=== PATIENT | female | born 1975 | race Caucasian/White ===

== ENCOUNTER → 2023-08-12 13:47 | Outpatient (REF) | payer BC, SELFPAY | LOC: WDC 13:47 | PROVIDERS: ATTENDING PHYSICIAN Obstetrics & Gynecology | DX: Z12.31 Encounter for screening mammogram for malignant neoplasm of breast (principal) | CPT/HCPCS: 77063; 77067 ==

== ENCOUNTER → 2024-08-12 14:17 | Outpatient (REF) | payer BC, SELFPAY | LOC: HWRAD 14:17 | PROVIDERS: ATTENDING PHYSICIAN Obstetrics & Gynecology; FAMILY PHYSICIAN Family Medicine | DX: N92.0 Excessive and frequent menstruation with regular cycle (principal) | CPT/HCPCS: 76830; 76856 ==

== ENCOUNTER 2024-08-31 06:18 | Day surgery (SDC) | payer OTHER, SELFPAY ==
[2024-08-31 09:05] VITALS: BMI 38.3
[2024-08-31 09:06] VITALS: BP 134/93; BMI 38.3
[2024-08-31] MEDS: NORMOSOL-R/PLASMALYTE-A 1000 IV (09:11)
[2024-08-31] MEDS: NEURONTIN 100 MG PO (09:11)
[2024-08-31] MEDS: TYLENOL 1000 MG PO (09:11)
[2024-08-31 09:25] LABS: HCG, Urine Qualitative Screen Negative
--- NOTE | 2024-08-31 11:23 | W.IMMPOSTOP ---
Surgical Immed Post Op Note
-
Primary Surgeon: Leigha Juarez DO
Assisting Surgeon: none
Pre-op Diagnosis: Menorrhagia, enlarged uterus
Post-op Diagnosis: same, small endometrial polyp
Procedure Performed: Hysteroscopy D&C polypectomy
Anesthesia Type: MAC with IV sedation Dr. Orozco
Specimen / Cultures: 1. endocervical curretings; 2. endometrial curettings with polyp
Estimated Blood Loss: 5ml
Fluid deficit: 60mL NSS
Complications: none
Operative Findings: Uterus sounded to 13 cm; Endometrial polyp. Bilateral tubal ostia seen.
Counts corrects x 2.
[2024-08-31 11:30] VITALS: BP 131/77
[2024-08-31 11:45] VITALS: BP 125/82
[2024-08-31 12:00] VITALS: BP 125/82
== END 2024-08-31 12:30 | disposition home or self-care (01) ==
LOC: SDS 06:18
PROVIDERS: ATTENDING PHYSICIAN Obstetrics & Gynecology
DX: N84.0 Polyp of corpus uteri (principal); N92.0 Excessive and frequent menstruation with regular cycle
CPT/HCPCS: 58558; 88305; 81025; 88341; 88342

== ENCOUNTER 2024-09-01 22:09 | Inpatient (IN) | payer OTHER, SELFPAY ==
[2024-09-01 18:41] VITALS: BP 160/93
[2024-09-01 19:38] LABS: % Basophils 0.4 % (0-2); % Eosinophils 0.7 % (0-6); % Immature Granulocytes 0.3 % (0-0.5); % Lymphocytes 19.1 % (20.5-51.1); % Monocytes 5.6 % (1.7-9.3); % Neutrophils 73.9 % (42.2-75.2); Absolute Eosinophils 0.1 10^3/uL (0-0.7); Absolute Monocytes 0.6 10^3/uL (0.1-0.6); Absolute Neutrophils 7.9 10^3/uL (1.4-6.5); Hematocrit 40.1 % (37.0-47.0); Hemoglobin 13.3 g/dL (12.0-16.0); Mean Corp Hgb Conc. 33.2 g/dL (33.0-37.0); Mean Corpuscular Hgb 27.9 pg (27.0-31.0); Mean Corpuscular Volume 84.1 fL (81.0-99.0); Mean Platelet Volume 9.7 fL (7.4-10.4); Nucleated Red Blood Cells % 0 %; Platelet Count 294 10^3/uL (130-400); Red Blood Cell Count 4.77 10^6/uL (4.20-5.40); Red Cell Dist. Width 13.2 % (11.5-14.5); White Blood Cell Count 10.6 10^3/uL (4.8-10.8)
[2024-09-01 19:51] LABS: Urine Albumin Negative (Neg - Trace); Urine Bilirubin Negative (Negative); Urine Character Clear (Clear); Urine Color Yellow; Urine Glucose Negative (Negative); Urine Ketone Negative (Negative); Urine Leukocyte Negative (Negative); Urine Nitrite Negative (Negative); Urine Occult Blood 2+ (Negative); Urine Specific Gravity 1.015 (<1.030); Urine Urobilinogen Negative (Neg - 1+)
[2024-09-01 19:55] LABS: ALT (SGPT) 15 U/L (0-35); AST (SGOT) 16 U/L (14-36); Albumin 3.9 g/dl (3.5-5.0); Alkaline Phosphatase 71 U/L (38-126); Blood Urea Nitrogen 11 mg/dl (7-17); Calcium 9.2 mg/dl (8.4-10.2); Carbon Dioxide 23 mmol/L (22-30); Chloride 110 mmol/L (98-107); Glucose 93 mg/dl (70-99); Potassium 3.8 mmol/L (3.5-5.1); Sodium 139 mmol/L (135-145); Total Bilirubin 0.7 mg/dl (0.2-1.3); Total Protein 6.8 g/dl (6.3-8.2); eGFR > 60.00
[2024-09-01 20:07] LABS: Urine Bacteria Few (Negative); Urine Red Blood Cell 0-2 /HPF (0-2); Urine White Cell 0-2 /HPF (0-5)
[2024-09-01] MEDS: UNASYN IV (20:53)
[2024-09-01] MEDS: ZOFRAN 4 MG IV (20:53)
[2024-09-01 21:35] VITALS: BP 138/73
[2024-09-01 22:05] VITALS: BP 150/95; BMI 37.9
[2024-09-01] MEDS: TYLENOL 650 MG PO (22:28)
[2024-09-02] MEDS: UNASYN IV ×4 (02:07→20:14)
[2024-09-02] MEDS: MOTRIN 600 MG PO (02:12)
[2024-09-02 07:49] VITALS: BP 141/86
--- NOTE | 2024-09-02 12:58 | W.PN.UPDATE ---
Update Note
Progress Note Update
I am operating today. SPoke with Dr. Christopher this am. Pt called reporting not feeling well and had fever at home.
Admitted for endometritis. I just received [place] text from Dr. Mathias that there was some fat in the [facility] and emc specimen.
She is sending for special stains. I called and spoke with Valentina and explained concerns. I am ordering CT Abd/pelvis with IV contrast to evaluate for fluid collection, abscess or free air. Her WBC is not elevated. She is currently on unasyn IV.
Will make NPO for now.
[2024-09-02] MEDS: OMNIPAQUE 50 ML PO (14:40)
[2024-09-02 15:39] VITALS: BP 137/97
--- NOTE | 2024-09-02 17:23 | W.PN.OBG.DWH ---
Today's Communication / Plan
-
-CT A/P
-maintain NPO until further notice, pending CT report
-continue Abx
-follow blood cultures
-monitor Temp.
-repeat CBC in AM
Assessment/Plan
-
49yo POD#2 s/p D&C Hysteroscopy on 08/31
1. Fever/Myalgias:
-Possible Endometritis
-patient has been afebrile since admission (Temp of 101 at home yesterday)
-Unasyn started yesterday
-No leukocytosis noted
-Blood cultures pending
-repeat CBC, CMP in AM
2. Post-op
-Per surgeon, the prelim read on the specimen from her D&C showed fat tissue thus there is concern that perforation occurred during the procedure
-CT scan ordered to evaluate for abscess/free air. read pending
-maintain NPO for now.
Subjective Data
-
Patient feels okay. Having nausea but had been able to tolerate PO intake earlier today. No emesis. Now NPO for CT scan. She also has noticed loose BM. Abdominal pain is not severe. she denies foul drainage from the vagina. No VB. Overall feels okay
Objective Data
-
Laboratory Results
09/01/24 19:23
09/01/24 19:23
Vital Signs
Temp Pulse Resp BP Pulse Ox
99.5 F 109 16 137/97 99
09/02/24 15:39 09/02/24 15:39 09/02/24 15:39 09/02/24 15:39 09/02/24 15:39
Blood Cx: Pending
Gen: nad well appearing
Abd: soft, nt, nd, no r/g
--- NOTE | 2024-09-02 20:41 | W.PN.OBG.DWH ---
Today's Communication / Plan
-
continue with unasyn as ordered
Clear liquid diet
Stool cultures and cdiff cultures
GI consult tomorrow
CBC, CMP tomorrow.
Assessment/Plan
-
Impression:
1. S/P hysteroscopy D&C 08/31/2024 performed for evaluation of menorrhagia. Some technical challenge in procedure related to uterine size 14.5 cm, body habitus, extreme anteverted uterus with cervix located behind and superior to the pubic bone.
2. Fever and cramping postop day 2: Etiology unclear. Potential causes for fever include pancolitis, postoperative endometritis. CT did not show evidence of abscess or bowel perforation.
3. Pathology gave verbal report of seeing some fat cells on endometrial and endocervical biopsies. Finding of fat suggest source other than uterus. This raises concern for uterine perforation. Fat could come from various sources including
mesentery, epiploica, bladder, deeper vaginal wall. She is nontoxic in appearance and does not have high white blood cell count. CT scan showed no evidence of abscess, uterine or bowel perforation.
Source of fat is unknown.
4. Pancolitis: This was identified on CT. Patient did not have any prior symptoms, recent illness, recent antibiotics. This may be separate and isolated from her procedure.
5. Menorrhagia- pt contemplating future hysterectomy for definitive mgmt.
6. Enlarged uterus-suspected adenomyosis. There was no evidence of fibroids on her pelvic ultrasound.
Plan:
1. Continue on IV Unasyn as a precaution and continue with observation of clinical status. Will repeat CBC with differential, CMP in a.m. She is presently nontoxic in appearance and exam. She does not present to have an acute abdomen or acute
peritoneal sign.
2. Clear diet for now.
3. Stool for culture and C. difficile.
4. GI consult in a.m. regarding recommendations for colitis. I spoke with via telephone call to review her history and above findings.
5. I had a lengthy conversation with Valentina and her , Eric regarding her symptomatology, possible diagnoses. I discussed that I cannot, with certainty, explain the presence of adipose cells with her biopsies. I did not have evidence or
suspicion of uterine perforation at the time of her surgery. I did reassure her that CT did not reveal evidence of uterine perforation or bowel perforation. She appears well, her vitals are stable, she does not have evidence of hemorrhage. All of
the signs are very reassuring. I reviewed the plan of care. I discussed that we will need to keep a watchful eye on her symptomatology, exam and labs. Discussed testing that will be ordered.
She is anxious to get home as soon as able, but is understanding of the need to make sure she is ok. They were planning to have a graduation green party for their son this Thursday. I expressed my sympathy that she has to be in the hospital unexpectedly.
I did explain that the cause of colitis remains unknown and may not be related to her procedure. I stressed the importance of making sure that she is improving and medically cleared before she goes home. She and agree with plan.
Discussed CT with Dr. Baker
Discussed case with GI Dr. Mock
Communicated with pathologist via [place] Text.
Time spent over 60 min between face to face time, coordinating care and discussion with other physicians.
Subjective Data
-
Valentina is sitting in room with watching TV.
Reports felt fine the day of surgery. Slept for several hours after she got home. That night felt some cramping.
The next morning 09/01 [facility] Rn called to check in postop protocol. Valentina had some nausea. RN asked if she took her temp.
Temp initially 99 but later in afternoon 101. She called service and Dr. Christopher met her at hospital approx 7pm or so last night. Was able to eat without issue. Did have some loose stool today x 5. No vomiting. Nausea resolved. No abdominal pain, no
abnormal bleeding, no dysuria, no foul smelling discharge. Feels hungry. Not passing much gas. Denies any fever today. No chills.
Denies any hx of colitis, or GI issues. Was supposed to have colonoscopy a few months ago but had to cancel and has not rescheduled it yet.
Denies any recent antibiotics. Denies feeling ill recently.
Denies any hematuria, blood in stool, denies vaginal bleeding.
Objective Data
-
Laboratory Results
09/01/24 19:23
09/01/24 19:23
Vital Signs
Temp Pulse Resp BP Pulse Ox
99.5 F 109 16 137/97 99
09/02/24 15:39 09/02/24 15:39 09/02/24 15:39 09/02/24 15:39 09/02/24 15:39
PE: General: well appearing, no acute distress, conversant. Appears comfortable.
VS: Tmax 99.5 Pulse 137/97 P 109 R 16
COr: regular, tachycardic
Pulm: clear b/l
Abd: soft, NDNT no guarding, no rebound or rigidity. BS present. Abdomen is nontender even with deep palpation.
Ext: no calf pain
CT: (Summarized salient findings):
Abdomen: Liver is normal size. Mild to moderate diffuse hepatic steatosis. Gallbladder normal.
No abnormal distention or wall thickening in the stomach, duodenum or jejunum. No upper abdominal ascites or pneumoperitoneum. Small fat-containing umbilical hernia.
Pelvis: No abnormal small bowel wall thickening or distention. Oral contrast passes through the small bowel and into the colon. The appendix is not clearly identified. There is a small amount of right sided mesenteric lymphadenopathy.
Cecum is distended with contrast material measuring 6.6 cm diameter. There is a mild amount of circumferential wall thickening in the cecum, ascending colon, transverse colon, and descending colon consistent with mild to moderate colitis. There is
mild amount of pericolonic inflammation. The rectum is distended with rectal contrast and does not demonstrate abnormal wall thickening.
Uterus is anteverted. There is a scar in the anterior uterine segment. No evidence for periuterine fluid collection or abscess. There is a 1.7 x 1.9 cm thick walled corpus luteal cyst in the left ovary. The right ovary appears normal.
There is no peritoneal fluid or lymphadenopathy in the pelvis.
CT Impression
1. Mild to moderate acute infectious pancolitis.
2. Anteverted uterus without evidence for adjacent fluid to suggest an abscess or perforation.
3. scar in the anterior lower uterine segment.
4. 1.9 cm corpus luteal cyst in the left ovary.
5. Mild to moderate diffuse hepatic steatosis.
[2024-09-02 23:00] VITALS: BP 151/81
[2024-09-03] MEDS: UNASYN IV ×2 (02:00→11:07)
[2024-09-03 07:00] VITALS: BP 141/74
[2024-09-03 08:36] LABS: % Basophils 0.7 % (0-2); % Eosinophils 4.2 % (0-6); % Immature Granulocytes 0.4 % (0-0.5); % Lymphocytes 19.9 % (20.5-51.1); % Monocytes 9.2 % (1.7-9.3); % Neutrophils 65.6 % (42.2-75.2); Absolute Basophils 0.1 10^3/uL (0-0.2); Absolute Eosinophils 0.3 10^3/uL (0-0.7); Absolute Lymphocytes 1.6 10^3/uL (1.2-3.4); Absolute Monocytes 0.7 10^3/uL (0.1-0.6); Absolute Neutrophils 5.3 10^3/uL (1.4-6.5); Hematocrit 41.5 % (37.0-47.0); Hemoglobin 13.6 g/dL (12.0-16.0); Mean Corp Hgb Conc. 32.8 g/dL (33.0-37.0); Mean Corpuscular Hgb 27.4 pg (27.0-31.0); Mean Corpuscular Volume 83.5 fL (81.0-99.0); Mean Platelet Volume 9.6 fL (7.4-10.4); Nucleated Red Blood Cells % 0 %; Platelet Count 288 10^3/uL (130-400); Red Blood Cell Count 4.97 10^6/uL (4.20-5.40); Red Cell Dist. Width 13.1 % (11.5-14.5)
[2024-09-03 09:00] LABS: ALT (SGPT) 31 U/L (0-35); AST (SGOT) 29 U/L (14-36); Albumin 4.2 g/dl (3.5-5.0); Alkaline Phosphatase 90 U/L (38-126); Blood Urea Nitrogen 7 mg/dl (7-17); Calcium 9.7 mg/dl (8.4-10.2); Carbon Dioxide 23 mmol/L (22-30); Chloride 107 mmol/L (98-107); Estimated Creatinine Clearance > 125 ml/min; Glucose 90 mg/dl (70-99); Potassium 4.2 mmol/L (3.5-5.1); Sodium 137 mmol/L (135-145); Total Protein 7.3 g/dl (6.3-8.2); eGFR > 60.00
--- NOTE | 2024-09-03 09:42 | CON.GI ---
Addendum entered and electronically signed by Josh Mock MD 09/03/24 11:58:
I saw and examined the patient.
The MORTGAGE ASSISTANT's note was reviewed and I agree with the note.
Impression:
--loose stools/ pancolitis - Seen on CT imaging involving cecum, ascending, transverse and descending
- Recent antibiotic use after gum grafting (Augmentin). Stool negative for C. difficile
- Stool culture pending
- No chronicity to symptoms and now improved loose bowel movements without any abd pain, leukocytosis
-no prior colonoscopy
-- S/P hysteroscopy D&C 08/31 for evaluation of menorrhagia. developed post op fever . Discussed with Dr. Juarez - some technical challenge in procedure related to anatomy
Pathology verbal report - seeing fat cells on endometrial and endocervical biopsies to CHANNELING MACHINE OPERATOR . Underwent CT scan showed no evidence of abscess, uterine or bowel perforation. CHANNELING MACHINE OPERATOR discussed with gen surgery as well
--Hepatic steatosis seen on imaging
plan
Follow-up stool culture
Continue oral antibiotics for total of 7 days on discharge
low fat low residual diet
Patient eventually need colonoscopy as outpatient in 8 weeks. Will recommend follow-up with GI as outpatient
No further recommendation. discussed with CHANNELING MACHINE OPERATOR team, Will sign off
Original Note:
Consultation
-
Date/Time Consultation Requested: 09/02/242136
Date/Time Consultation Performed: 09/03/2415
Requesting Provider: Dr. Cintron
Performing Provider: Dr. Mock/TARA Lozada
Reason for Consultation: colitis
Medical History
Chief Complaint / HPI
Chief Complaint: fever
History of Present Illness:
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
admitted on 09/01/2024 for decreased p.o. intake and fever of 101 �F. We are asked to evaluate as patient was having loose stools as well as CT scan of the abdomen and pelvis with IV contrast and rectal contrast showed mild to moderate acute
infectious pancolitis. The patient was placed on IV Unasyn. The patient does tell me that approximately 2 to 3 weeks ago she had 'gum grafting' and was placed on 10 days of Augmentin this finished up a little over a week ago. She has had no other
recent antibiotics. 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 She denies any raw or spoiled foods. She does state that on she developed some mild nausea followed by some abdominal
cramping. Her bowel movements are usually soft Mcdougal stool scale #4 daily. She states initially she started having soft bowel movements that progressed into 4-5 loose bowel movements after arrival into emergency department. After administration
of contrast she started having multiple watery stools. Since that time she has had none. She did have stool studies performed that are pending. So far stool is negative for C. difficile. Stool culture is pending. She denies any family history
of inflammatory bowel disease or colon cancer. Her father did have esophageal cancer and was diagnosed in his 70s. She has never had a colonoscopy. Prior she has no history of upper or lower GI complaints. She does not smoke. She drinks rare
alcohol once to twice a month. Her only medication would be Xyzal as needed, other than the recent antibiotic described above. Since here her Tmax since arrival was 99.5 this was on 09/02/2024 at 1539. WBC 8.0, hemoglobin 13.6, hematocrit 41.5,
platelets 288, sodium 137, potassium 4.2, BUN 7, creatinine 0.6, glucose 90, total bilirubin 1.0, AST 29, ALT 30, alk phos 90. She is tolerating clear diet without any difficulty.
Past Medical History
Past Medical History: Other (Seasonal allergies, carcinoma in situ of cervix status post LEEP, fibroid uterus, migraine)
Past Surgical History: Other (LEEP, D&C, diagnostic hysteroscopy, )
Social History
Tobacco: Non-Smoker
Alcohol: Occasional
Drug: None
Personal:
Living: With Family
Employment: Employed
Family History
Family History: Other (Father history of esophageal cancer, no family history of colon cancer, no family history of inflammatory bowel disease)
Allergies / Home Medications
Allergy/AdvReac Type Severity Reaction Status Date / Time
cefaclor Allergy HIVES,SWELL Verified 09/01/24 19:26
ING
coconut Allergy SWELLING/HI Verified 09/01/24 20:52
VES
�Medication �Instructions �Recorded
levocetirizine 5 mg tablet (Xyzal) 5 mg PO DAILY PRN allergies 08/25/24
Review of Systems
-
All other systems: A 12 pt ROS was Negative except as stated above in HPI
Vital Signs
Temp Pulse Resp BP Pulse Ox
98.2 F 93 20 141/74 96
09/03/24 07:00 09/03/24 07:00 09/03/24 07:00 09/03/24 07:00 09/03/24 07:00
Physical Exam
Exam
General: No Apparent Distress
HEENT: Anicteric
Respiratory: Clear
Cardiac: Regular Rhythm
GI: Soft, Non Tender, Non Distended and Normal Bowel Sounds
Skin: Warm and Dry
Neuro: AO x 3
Psych: Calm
Results
WBC 8.0 10^3/uL (4.8-10.8) 09/03/24 07:58
Hgb 13.6 g/dL (12.0-16.0) 09/03/24 07:58
Hct 41.5 % (37.0-47.0) 09/03/24 07:58
MCV 83.5 fL (81.0-99.0) 09/03/24 07:58
Plt Count 288 10^3/uL (130-400) 09/03/24 07:58
Absolute Neuts (auto) 5.3 10^3/uL (1.4-6.5) 09/03/24 07:58
Sodium 137 mmol/L (135-145) 09/03/24 07:58
Potassium 4.2 mmol/L (3.5-5.1) 09/03/24 07:58
Chloride 107 mmol/L (98-107) 09/03/24 07:58
Carbon Dioxide 23 mmol/L (22-30) 09/03/24 07:58
BUN 7 mg/dl (7-17) 09/03/24 07:58
Creatinine 0.6 mg/dL (0.6-1.0) 09/03/24 07:58
Calcium 9.7 mg/dl (8.4-10.2) 09/03/24 07:58
Total Bilirubin 1.0 mg/dl (0.2-1.3) 09/03/24 07:58
AST 29 U/L (14-36) 09/03/24 07:58
ALT 31 U/L (0-35) 09/03/24 07:58
Alkaline Phosphatase 90 U/L (38-126) 09/03/24 07:58
Diagnostic Image Results:
CT abdomen and pelvis with IV contrast and rectal contrast:
IMPRESSION:
1. MILD to MODERATE ACUTE INFECTIOUS PANCOLITIS.
2. Anteverted uterus without evidence for adjacent fluid to suggest an abscess or perforation.
3. section scar in the anterior lower uterine segment.
4. 1.9 cm corpus luteal cyst in the left ovary.
5. Mild to moderate diffuse hepatic steatosis.
Prior GI Procedures:
EGD: Never
Colonoscopy: Never
Assessment / Plan
-
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
admitted on 09/01/2024 for decreased p.o. intake and fever of 101 �F. We are asked to evaluate as patient was having loose stools as well as CT scan of the abdomen and pelvis with IV contrast and rectal contrast showed mild to moderate acute
infectious pancolitis. Tmax since arrival was 99.5 this was on 09/02/2024 at 1539. WBC 8.0, hemoglobin 13.6, hematocrit 41.5, platelets 288, sodium 137, potassium 4.2, BUN 7, creatinine 0.6, glucose 90, total bilirubin 1.0, AST 29, ALT 30, alk phos
90. She is tolerating clear diet without any difficulty. Stool negative for C. difficile. Stool culture pending. Initially with loose stools. No further bowel movements. Tolerating clear liquid diet. No abdominal pain. Recent antibiotic use
for 'gum grafting' approximately 2 weeks ago (Augmentin).
Impression:
Colitis
- Seen on CT imaging involving cecum, ascending, transverse and descending
- Recent antibiotic use after gum grafting (Augmentin). Stool negative for C. difficile
- Stool culture pending
- No chronicity to symptoms and now improved bowel movements without any pain, leukocytosis
Hepatic steatosis seen on imaging
Plan:
- Patient lost IV access. Would need midline to continue. We are okay to changing her to oral antibiotics at this point.
- Will use Cipro 500 mg p.o. twice daily x 7 days as well as Flagyl 500 mg p.o. 3 times daily for 7 days.
- Discussed with patient would use probiotic while on antibiotics (Recommended align 5x)
- Advance to low residue diet, discussed this at length with patient. Can advance fiber back into diet in 2 weeks.
- I sent message to our front desk manager and will follow-up with patient in approximately 4 weeks. At that time we will schedule colonoscopy for 8 weeks.
-
-
Thank you for consultation and allowing me to participate in the patient's care. Please call the superintendent of generation GI physician during the after hours with any questions or concerns.
--- NOTE | 2024-09-03 10:17 | W.PN.OBG.DWH ---
Today's Communication / Plan
-
- Transition to PO antibiotics
- Transition to low residue diet
- DC home if able to tolerate diet and po antibiotics
Assessment/Plan
-
Patient is a 49yo POD#3 s/p hysteroscopy D&C, presented with postop fever
- Possible causes include endometritis or pancolitis
- Patient has remained afebrile since admission. She does not have an acute abdomen.
- There was concern for possible perforation with fat cells found in pathology of ECC and EMC
- CTAP showed no evidence of uterine or bowel perforation or abscess. There was pancolitis present
- AM labs reviewed- pt still with no white count. CBC/CMP wnl
- GI consult appreciated- transitioned to oral antibiotics: Flagyl 500mg TID and Cipro 500mg BID x7d. Patient also transitioned to low residue diet. They will arrange follow up for her in the office as well as a colonoscopy
- C diff culture negative. Rest of stool cultures still pending
- Discussed likely DC home this afternoon if patient is able to tolerate low residue diet and oral antibiotics
Subjective Data
-
Patient with no complaints. Reports she is feeling better. Denies fevers, chills, abdominal pain, nausea or vomiting. No vaginal bleeding. She did have some loose stool after drinking the contrast yesterday, but has not had any further bowel
movements. She lost IV access. She is tolerating clear liquid diet.
Objective Data
-
Laboratory Results
09/03/24 07:58
09/03/24 07:58
Vital Signs
Temp Pulse Resp BP Pulse Ox
98.2 F 93 20 141/74 96
09/03/24 07:00 09/03/24 07:00 09/03/24 07:00 09/03/24 07:00 09/03/24 07:00
General: well appearing
Abd: soft, nontender, non-distended
Ext: non-tender
[2024-09-03] MEDS: CIPRO 500 MG PO (10:59)
--- NOTE | 2024-09-03 12:02 | CM ---
Patient seen at bedside on . Patient states that she lives with children and her spouse. Patient PCP is Dr. Vigil and she uses the [facility] in [facility]. Patient stated that she is independent of all IADL's and ADL's and plans to have
discharge today but did not anticipate any discharge planning needs. CM will continue to follow for discharge planning needs.
PLan; home with no needs.
--- NOTE | 2024-09-03 13:30 | W.PN.UPDATE ---
Update Note
Progress Note Update
Checked in on patient. She was able to tolerate lunch. She said she felt much better after eating. She denies abdominal pain, fever chills, nausea, or vomiting. She has not had anymore diarrhea.
Patient stable for DC home
Galo and Víctor sent to patient's pharmacy. Aware to complete entire 7 day course
She needs to follow up with GI outpatient
Discharge instructions and return precautions reviewed with patient and all questions answered
[2024-09-03 14:33] VITALS: BP 135/70
== END 2024-09-03 14:39 | disposition home or self-care (01) | DRG 392 ==
LOC: 3 WEST ACU 22:09
PROVIDERS: Obstetrics & Gynecology; ADMITTING PHYSICIAN Obstetrics & Gynecology; CONSULT PHYSICIAN Internal Medicine Gastroenterology
DX: A09 Infectious gastroenteritis and colitis, unspecified (principal); N83.10 Corpus luteum cyst of ovary, unspecified side; N83.202 Unspecified ovarian cyst, left side; N85.4 Malposition of uterus; Z80.41 Family history of malignant neoplasm of ovary; Z80.52 Family history of malignant neoplasm of bladder
CPT/HCPCS: 74177; 80053; 81003; 81015; 85025; 87040; 87045; 87046; 87324; 87427; 87449; 99284; Q9967

== ENCOUNTER 2024-12-06 05:55 | Day surgery (SDC) | payer OTHER, SELFPAY ==
[2024-12-02 13:47] LABS: Beta HCG Quantitative < 2.39 mIU/ml; FSH 8.0 mIU/ml
[2024-12-02 16:47] VITALS: BMI 38.4
[2024-12-06] VITALS (20 sets, daily range): BP systolic 127–153; BP diastolic 67–93; BMI 38.4
[2024-12-06] MEDS: TYLENOL 1000 MG PO (06:32)
[2024-12-06] MEDS: NEURONTIN 300 MG PO (06:32)
[2024-12-06] MEDS: NORMOSOL-R/PLASMALYTE-A 1000 IV (06:47)
[2024-12-06] MEDS: EMEND 40 MG PO (07:08)
--- NOTE | 2024-12-06 09:57 | W.IMMPOSTOP ---
Surgical Immed Post Op Note
-
Primary Surgeon: Leigha Juarez DO
Assisting Surgeon: CARLOS Saucedo
Pre-op Diagnosis: Menorrhagia, adenomyosis, dysmenorrhea
Post-op Diagnosis: same, left ovarian simple cyst and corpus luteal cyst, omental adhesions and adhesions lower uterine segment.
Procedure Performed: Robotic total laparoscopic hysterectomy, bilateral salpingectomy, lysis of adhesions, left ovarian cystectomy
Anesthesia Type: general ET Dr. Chowdary
Specimen / Cultures: uterus, cervix, bilateral fallopian tubes
Estimated Blood Loss: 10ml
IVFluids: 700ml
Urine output: 150ml clear yellow
Complications: none
Operative Findings: Uterus enlarged approx 12 wk size, globular shape c/w adenomyosis. Left ovary with 3.0 cm simple cyst and 2cm corpus luteal cyst. Normal appearing right ovary. Normal appearing tubes. Omental adhesion to anterior abdominal wall.
Adhesions in vicinity of lower uterine segment.
Counts correct times 2.
Stable to recovery.
[2024-12-06] MEDS: ZOFRAN 4 MG IV ×2 (11:56→16:54)
[2024-12-06] MEDS: DILAUDID 0.5 MG IV (12:49)
[2024-12-06 14:40] LABS: Hematocrit 39.2 % (37.0-47.0); Hemoglobin 13.0 g/dL (12.0-16.0)
[2024-12-06] MEDS: LR 1000 IV ×2 (15:03→21:57)
[2024-12-06] MEDS: TORADOL 15 MG IV ×2 (15:03→21:59)
[2024-12-06 15:07] LABS: Blood Urea Nitrogen 9 mg/dl (7-17); Calcium 8.6 mg/dl (8.4-10.2); Carbon Dioxide 24 mmol/L (22-30); Chloride 104 mmol/L (98-107); Estimated Creatinine Clearance > 125 ml/min; Glucose 146 mg/dl (70-99); Potassium 4.5 mmol/L (3.5-5.1); Sodium 133 mmol/L (135-145); eGFR > 60.00
--- NOTE | 2024-12-06 15:46 | PTCARENOTE ---
1421 Pt arrived in bed from PACU. AAOX3, but drowsy. VSS. 2L NC IVF infusing. 5 lap sites open to air with glue. Oriented to room and call amato. Bed locked and in lowest position. at bedside
--- NOTE | 2024-12-06 16:42 | W.PN.OBG.DWH ---
Today's Communication / Plan
-
Check labs in am
Scopalamine patch for nausea
Anticipate dc hopefully tomorrow
Analgesia
Assessment/Plan
-
A/P: Postop s/p RA TLH b/l salpingectomy, lysis adhesions
Stable postop. Too nauseous to go home. Hx of nausea after anesthesia.
Nauseous:ordered scopalamine patch in addition to zofran.
Anagelsia.
Hope for dc in am.
Check labs in am.
Subjective Data
-
Postop check:
Feeling very nauseous. Adequate pain relief.
Objective Data
-
Laboratory Results
12/06/24 14:34
12/06/24 14:34
Vital Signs
Temp Pulse Resp BP Pulse Ox
97.9 F 99 18 129/78 98
12/06/24 15:25 12/06/24 15:25 12/06/24 15:25 12/06/24 15:25 12/06/24 15:34
VSS afeb
cor: regular rate
pulm: no increased work of breathing
abd: soft ND inc cdi
no active vaginal bleeding
[2024-12-06] MEDS: TRANSDERM-SCOP 1 PATCH TRANSDERM (17:23)
[2024-12-06] MEDS: LOVENOX 40 MG SC (17:23)
[2024-12-06] MEDS: TYLENOL PO (18:31)
[2024-12-06] MEDS: MORPHINE SULFATE 2 MG IV (19:13)
[2024-12-06] MEDS: TYLENOL 650 MG PO (23:26)
[2024-12-07 03:12] VITALS: BP 120/74
[2024-12-07] MEDS: TORADOL 15 MG IV ×2 (04:58→09:29)
[2024-12-07] MEDS: TYLENOL 650 MG PO (04:59)
[2024-12-07] MEDS: LR 1000 IV ×2 (04:59→13:09)
[2024-12-07 07:15] VITALS: BP 123/58
--- NOTE | 2024-12-07 07:17 | W.PN.OBG.DWH ---
Today's Communication / Plan
-
CLears, advance as prosper
OOB, ambulation today
Antiemetic
Consider for dc today if prosper diet
Assessment/Plan
-
A/P: POD#1 s/p RA TLH b/l salpingectomy , lysis adhesions
Nausea and not tolerating solids yet. Recommend clears as prosper.
Will need to stay until able to tolerate diet.
Antiemetic helping.
Cont postop pain mgmt, antiemetic.
Cap IV once prosper clears.
If prosper diet later today, consider for dc home.
Reviewed dc instructions.
Subjective Data
-
POD#1 Feeling nauseous still. Had vomiting last pm. Has not had more than sips water.
Pain mgmt adequate. Was getting IV morphine.
Voiding without difficulty.
Denies fever, chills, calf pain. No vaginal bleeding. No dysuria. No flatus yet.
Objective Data
-
Laboratory Results
12/06/24 14:34
Vital Signs
Temp Pulse Resp BP Pulse Ox
98.4 F 100 18 120/74 96
12/07/24 03:12 12/07/24 03:12 12/07/24 03:12 12/07/24 03:12 12/07/24 03:12
VSS afeb
cor: regular rate
pulm: no increased work of breathing
Abd: soft NDNT inc cdi
No vag bleeding
ext: no calf pain
[2024-12-07 08:00] LABS: Hematocrit 36.8 % (37.0-47.0); Hemoglobin 11.8 g/dL (12.0-16.0); Mean Corp Hgb Conc. 32.1 g/dL (33.0-37.0); Mean Corpuscular Volume 84.4 fL (81.0-99.0); Nucleated Red Blood Cells % 0 %; Platelet Count 314 10^3/uL (130-400); Red Cell Dist. Width 13.4 % (11.5-14.5)
--- NOTE | 2024-12-07 10:23 | CM ---
CM met with patient in room. No history of VN, SNF or DME. Patient to be discharged to home with .
PLAN: Home, no needs noted.
[2024-12-07 11:10] VITALS: BP 133/73
[2024-12-07] MEDS: TYLENOL PO ×2 (13:11→17:19)
[2024-12-07 15:20] VITALS: BP 133/63
[2024-12-07] MEDS: ROXICODONE 2.5 MG PO (17:16)
[2024-12-07] MEDS: LOVENOX 40 MG SC (17:17)
--- NOTE | 2024-12-07 18:43 | W.PN.UPDATE ---
Update Note
Progress Note Update
RN called me to report that patient wants to go home.
Tolerated diet.
--- NOTE | 2024-12-07 18:47 | W.DS.TRANS ---
DC Summary - Manager Inventory Control
-
Discharge Instructions:
Sleep Apnea Risk Low
Discharge Diagnosis/Procedures Robotic Total laparoscopic hysterectomy,
bilateral salpingectomy, left ovarian cystectomy
, lysis of adhesions
Diet Regular
Activity No strenuous activity
Driving Restrictions no driving if taking narcotic pain medication
Bathing Restrictions OK to Shower
Instructions:
Stand-Alone Forms:
Changes to Home Medications: Yes
Discharge Medications:
DC Medications w/original date entered in [employer]
levocetirizine 5 mg tablet (Xyzal) 5 mg PO DAILY PRN allergies 08/25/24
oxycodone 5 mg tablet 5 mg PO Q6H PRN pain #14 tabs 12/06/24
acetaminophen 325 mg tablet 650 mg (2 x 325 mg) PO Q6 Pain #0 tabs 12/07/24
ondansetron HCl 4 mg tablet 4 mg PO Q6H PRN nausea #16 tabs 12/07/24
oxycodone 5 mg tablet 2.5 mg (1/2 x 5 mg) PO Q4HPRN PRN moderate pain #0 tabs 12/07/24
scopolamine base 1 mg over 3 days transdermal patch 1 patch transdermal Q72H #0 ea 12/07/24
simethicone 80 mg chewable tablet 80 mg PO Q6HPRN PRN gas distention #0 tabs 12/07/24
Home Medication Changes
Pending Results: Yes
Additional Pending Results:
surgical pathology
Total time spent discharging patient (in min): 30
[2024-12-07 19:00] VITALS: BP 127/68
== END 2024-12-07 19:30 | disposition home or self-care (01) ==
LOC: SDS 05:55
PROVIDERS: ATTENDING PHYSICIAN Obstetrics & Gynecology; FAMILY PHYSICIAN Family Medicine
DX: N92.0 Excessive and frequent menstruation with regular cycle (principal); N94.6 Dysmenorrhea, unspecified; N80.03 Adenomyosis of the uterus; N83.12 Corpus luteum cyst of left ovary; N83.292 Other ovarian cyst, left side; K66.0 Peritoneal adhesions (postprocedural) (postinfection); N73.6 Female pelvic peritoneal adhesions (postinfective); Z86.001 Personal history of in-situ neoplasm of cervix uteri
CPT/HCPCS: 58571; 58662; 36415; 80048; 83001; 83002; 84702; 85014; 85018; 85025; 86850; 86900; 86901; 88305; 88307

== ENCOUNTER 2024-12-20 10:41 | Emergency (ER) | payer OTHER, SELFPAY ==
[2024-12-20 10:46] VITALS: BP 169/99
--- NOTE | 2024-12-20 11:17 | ED.GENMED ---
History of Present Illness
General
Chief Complaint: Dizziness
Source: patient
Exam Limitations: none
Time Seen by Provider: 12/20/24 11:16
Nursing documentation reviewed up to this point in time: agreed with
History of Present Illness
History of Present Illness:
49 yr. old female female presents to the ER for evaluation of dizziness. She is status post hysterectomy December 06. She reports she was visiting her son in [place] for [facility] weekend and did a lot of walking. Today she woke up
feeling off. She felt very tired, lightheaded dizzy. She denies vertigo symptoms. She denied any chest pain shortness of breath. She felt mildly nauseous. She took her pulse ox and her heart rate was low at 60 and is typically in the 90s. She
denies any bleeding.. She denies any fever chills urinary frequency urgency or dysuria. Denies any trauma headache.
Phy Exam
General Physical Exam
General Presentation: no apparent distress
General age: appears stated age
General Skin: warm and dry
General Habitus: normal
General Mental: alert
General Hydration: dry mucous membranes
Cardiovascular Exam
Cardiovascular Exam: regular rate/rhythm, no murmur and normal peripheral pulses
Pulmonary Exam
Pulmonary Exam: lungs clear and no respiratory distress
Neurological Exam
Neurological Exam: alert and oriented x3
Course
Orders/Labs/Results
Orders:
Orders
12/20/24 10:50
Electrocardiogram (*1) Urgent
Reason for Study: Vertigo / Dizzy
EKG- Treatment ONCE
12/20/24 11:17
Cardiac Monitoring- Treatment ONCE
IV Insert/Care/Rem.- Treatment PRN
12/20/24 11:35
Complete Blood Count/With Diff Urgent
Comprehensive Metabolic Panel Urgent
0.9% Sodium Chloride 1000 ml [Nss] 1,000 ml IV BOLUS
Abnormal Lab Results
12/20/24
11:35
MCHC 32.9 L g/dL
(33.0-37.0)
12/20/24 11:35
12/20/24 11:35
Vital Signs
Initial and Last Documented VS:
Initial Vital Signs
Temp Pulse Resp BP Pulse Ox
98.4 F 106 20 169/99 100
12/20/24 10:46 12/20/24 10:46 12/20/24 10:46 12/20/24 10:46 12/20/24 10:46
Last Documented Vital Signs
Temp Pulse Resp BP Pulse Ox
98.4 F 82 21 131/76 99
12/20/24 10:46 12/20/24 14:00 12/20/24 14:00 12/20/24 14:00 12/20/24 14:00
Dental Scheduling Coordinator consulted with Physician
Dental Scheduling Coordinator consulted with physician?: Yes
Name of Physician Consulted: Dr Silvestre
MDM/Problems Addressed
Differential Diagnosis Includes:
Not much dehydration ,anemia
MDM/Problems Addressed:
Patient is status post hysterectomy 12/06 presented to the ER for feeling very tired dizzy lightheaded. She did a lot of walking this weekend and was out of town visiting her son. She has no complaints of fever chills denies any chest pain no
vertigo no trauma no headache. She presents awake alert no acute distress stable vital signs, lungs are clear not hypoxic. labs reviewed nml HGB 13.4, normal chemistries.
Patient drank oral fluids here and received IVFhere feeling much better. No urinary frequency. no UTI s/s no fevers afebrle here. stable CAse d/ c w/ DR Silvestre will DC home with instructions to return if any worsening of symptoms close outpatient
follow-up with PCP.
*Pulse Oximetry
SaO2: 100
Oxygen Mode of Delivery: Room air
Patient hypoxic: no
*Critical Care Note
Total Time (30-74mins, 75-104mins- exclusive of procedures): Not Applicable
ED Attending Note
-
Portions of this chart may have been created with voice recognition software.� Occasional wrong word or��sound alike� substitutions may have occurred due to the inherent limitations of voice recognition software.
Discharge Plan
Departure
Patient Disposition: Home (Routine Discharge)
Date of Disposition: 12/20/24
Time of Disposition: 14:18
Patient with high blood pressure during this ER visit?: Yes
Condition: Fair
Covid-19: Not Applicable
Discharge Problem:
Dizziness
Instructions: Dizziness, BLOOD PRESSURE
Prescriptions:
No Action
levocetirizine [Xyzal] 5 mg Tablet
5 mg PO DAILY PRN (Reason: allergies)
oxycodone 5 mg tablet
5 mg PO Q6H PRN (Reason: pain) Qty: 14 0RF
Rx Instructions:
2.5 mg PO Q 4-6 HRPRN moderate pain or 5mg PO Q 4-6 HR PRN severe pain
acetaminophen 325 mg Tablet
650 mg PO Q6 Qty: 0 0RF
scopolamine base 1 mg over 3 days Patch 3 Day
1 patch transdermal Q72H Qty: 0 0RF
simethicone 80 mg Tablet,Chewable
80 mg PO Q6HPRN PRN (Reason: gas distention) Qty: 0 0RF
oxycodone 5 mg Tablet
2.5 mg PO Q4HPRN PRN (Reason: moderate pain) Qty: 0 0RF
ondansetron HCl 4 mg tablet
4 mg PO Q6H PRN (Reason: nausea) Qty: 16 0RF
Referrals:
Chana Amaya DO [Family Provider, Family Practice]
Activity Restrictions/Additional Instructions:
as discussed your labs are unremarkable. Please continue to stay well-hydrated. Follow-up with family doctor in the next several days for reevaluation. Return if any worsening of symptoms
Interventions
Interventions:
*Risk Screen - Suicide Last Done: 12/20/24 10:46
*General Assessment Last Done: 12/20/24 11:37
*Neglect/Abuse Screening Last Done: 12/20/24 10:50
*ED- Fall Risk Assessment Last Done: 12/20/24 11:37
*ED COVID-19 Vaccine History Last Done: 12/20/24 11:37
*ED Influenza Vaccine History Last Done: 12/20/24 11:37
ED- Neurological Assessment Last Done: 12/20/24 11:37
Discharge Date and Time
Print Language: BENGALI
[2024-12-20 11:28] VITALS: BP 155/86
[2024-12-20] MEDS: NSS 1000 IV (11:40)
[2024-12-20 11:45] LABS: Hematocrit 40.7 % (37.0-47.0); Hemoglobin 13.4 g/dL (12.0-16.0); Mean Corp Hgb Conc. 32.9 g/dL (33.0-37.0); Mean Corpuscular Volume 83.2 fL (81.0-99.0); Nucleated Red Blood Cells % 0 %; Platelet Count 383 10^3/uL (130-400); Red Cell Dist. Width 13.2 % (11.5-14.5)
[2024-12-20 12:00] VITALS: BP 134/65
[2024-12-20 12:03] LABS: ALT (SGPT) 21 U/L (0-35); AST (SGOT) 19 U/L (14-36); Albumin 4.3 g/dl (3.5-5.0); Alkaline Phosphatase 109 U/L (38-126); Blood Urea Nitrogen 7 mg/dl (7-17); Calcium 9.6 mg/dl (8.4-10.2); Carbon Dioxide 25 mmol/L (22-30); Chloride 106 mmol/L (98-107); Glucose 94 mg/dl (70-99); Potassium 3.9 mmol/L (3.5-5.1); Sodium 137 mmol/L (135-145); Total Protein 7.7 g/dl (6.3-8.2); eGFR > 60.00
[2024-12-20 13:00] VITALS: BP 122/66
[2024-12-20 14:00] VITALS: BP 131/76
== END 2024-12-20 14:23 | disposition home or self-care (01) ==
LOC: EMR 10:41
PROVIDERS: Nurse Practitioner; EMERGENCY PHYSICIAN Student in an Organized Health Care Education/Training Program; FAMILY PHYSICIAN Family Medicine
DX: R42 Dizziness and giddiness (principal); Z90.710 Acquired absence of both cervix and uterus
CPT/HCPCS: 96360; 99284; 80053; 85025; 93005